=== PATIENT | male | born 1965 | race Caucasian/White ===

== ENCOUNTER 2018-08-04 20:43 | Emergency (ER) | payer SELFPAY ==
[~2018-08-04] VITALS: Ht 172.7 cm; Wt 97.5 kg
[2018-08-04 20:47] VITALS: Ht 172.7 cm; Wt 97.5 kg
[2018-08-04 23:15] VITALS: BP 127/88
== END 2018-08-04 23:15 | disposition home or self-care (01) ==
LOC: ED 20:43
DX: H10.89 Other conjunctivitis (principal)